=== PATIENT | female | born 1945 ===

== ENCOUNTER 2018-06-19 06:52 | Emergency (ER) | payer OTHER ==
[~2018-06-19] VITALS: Ht 160 cm; Wt 76.7 kg
[2018-06-19] MEDS ORDERED: HYZAAR 50-12.51 EACH PO (07:11)
[2018-06-19] MEDS ORDERED: TOPROL XL25 MG PO (07:12)
== END 2018-06-19 08:48 | disposition home or self-care (01) ==
LOC: ER 06:52
DX: G56.01 Carpal tunnel syndrome, right upper limb (principal); M13.841 Other specified arthritis, right hand